=== PATIENT | male | born 2000 | race Caucasian/White ===

== ENCOUNTER 2022-10-30 05:18 | Emergency (ER) | payer SELFPAY ==
[~2022-10-30] VITALS: Ht 165.1 cm; Wt 67.8 kg
--- NOTE | 2022-10-30 05:18 | NUR ---
PT SUZANNE PATEL, PREBOOK. TAKEN TO CHAIR
--- NOTE | 2022-10-30 05:20 | NUR ---
Dr. Juarez examining patient.
[2022-10-30 05:21] VITALS: BP 126/72
[2022-10-30 05:41] VITALS: BP 126/72
--- NOTE | 2022-10-30 05:41 | NUR ---
PATIENT [facility] POL[employer] DEPT. PATIENT EXAMINED BY DR. ramirez. PATIENT MEDICALLY CLEARED AND RELEASED IN CUSTODY IN STABLE CONDITION. ORIGINAL PRE-BOOK FORM GIVEN TO OFFICER Lucinda.
== END 2022-10-30 05:41 ==
LOC: MED 05:18
DX: Z02.89 Encounter for other administrative examinations (principal)
CPT/HCPCS: 99283